=== PATIENT | female | born 1965 | race African-American/Black ===

== ENCOUNTER 2016-11-26 19:50 | Observation (INO) | payer MEDICAID ==
--- NOTE | 2016-11-26 20:12 | CPEKG ---
Heart Rate: 69 RR Interval: 870 P-R Interval: 136 QRSD Interval: 96 QT Interval: 408 QTC Interval: 437 P [place]: 25 QRS [place]: 31 T Wave [place]: 51 EKG Severity - NORMAL ECG - EKG Impression: SINUS RHYTHM Electronically Signed By: Avinash Cheung 26-Nov-2016 20:16:23
[2016-11-26 20:22] LABS: % IMMATURE GRANULYOCYTES 0.2 % (0.0-1.1); ABSOLUTE IMMATURE GRANULOCYTES 0.01 10^3/uL (0.00-0.10); ADD DIFF? NO; ADD MORPH? NO; ADD SCAN? NO; ATYPICAL LYMPHOCYTE FLAG 20 (0-99); FRAGMENT RBC FLAG 0 (0-99); HEMATOCRIT 38.4 % (38.0-47.0); HEMOGLOBIN 12.6 g/dL (12.6-16.3); LEFT SHIFT FLG 0 (0-99); LIPEMIA HEMOLYSIS FLAG 80 (0-99); MEAN CELL HEMOGLOBIN 28.1 pg (27.9-34.1); MEAN CELL HEMOGLOBIN CONCENTR. 32.8 g/dL (32.4-36.7); MEAN CELL VOLUME 85.5 fL (81.5-99.8); MEAN PLATELET VOLUME 8.8 fL (8.7-11.7); PLATELET CLUMPS FLAG 10 (0-99); PLATELET COUNT 297 10^3/uL (150-400); RED BLOOD CELL COUNT 4.49 10^6/uL (4.18-5.33); RED CELL DISTRIBUTION WIDTH 17.1 % (11.5-15.2)
[2016-11-26] MEDS ORDERED: NS 500 ML IV ONE (20:22)
--- NOTE | 2016-11-26 20:27 | EDPHY ---
H & P Stated Complaint: chest pain, diff breathing, right eye pain/pressure - Personal History LMP (Females 10-55): Post Menopausal Current Tetanus Diphtheria and Acellular Pertussis (TDAP): Yes Tetanus Vaccine Date: < 10 years - Medical/Surgical History Hx Asthma: No Hx Chronic Respiratory Disease: Yes Hx Diabetes: Yes Hx Cardiac Disease: No Hx Renal Disease: Yes Hx Cirrhosis: No Hx Alcoholism: No Hx HIV/AIDS: No Hx Splenectomy or Spleen Trauma: No Other PMH: HTN, kidney stones, NIDDM, home O2 @ 2L n/c after left fibular surgery, hysterectomy, right breast biopsy, ABD MASS, gallbladder, pulmonary hypertension - Social History Smoking Status: Never smoked HPI/ROS: CHIEF COMPLAINT: Chest pain HISTORY OF PRESENT ILLNESS: less than 12 hours duration of chest pain. Started this morning. It is primarily right-sided radiates on the left. It is worse with exertion. There is some cough and shortness of breath. There may not be associated with upper respiratory infection symptoms that she is having. The pain is [id number]. There is no alleviating factor. No nausea or vomiting. No diaphoresis. History of coronary artery disease but no stent placement. She is uncertain when her last stress test was but she thinks it was approximately 5 years ago. No recent travel or surgery. She does have a history of venous thrombolic event several years ago, for which she is now on Coumadin. Due for an INR check this week. No fever. Some runny nose and sinus congestion. No other associated complaints or modifying factors. REVIEW OF SYSTEMS: Ten systems reviewed and are negative unless otherwise noted in the HPI EXAMINATION General Appearance: Alert, no distress Head: normocephalic, atraumatic Eyes: Pupils equal and round, no conjunctival pallor or injection ENT, Mouth: Mucous membranes moist Neck: Normal inspection, supple, non-tender Respiratory: Mild, scattered rhonchi. No consolidation. No tympany. Cardiovascular: Regular rate and rhythm Gastrointestinal: Abdomen is soft and nontender Back: non-tender, no bony abnormalities Neurological: A&O, nonfocal, normal gait Skin: Warm and dry, no rash Extremities: Nontender, no pedal edema Psychiatric: Mood and affect normal Differential Diagnoses: 1. Acute coronary syndrome 2. pulmonary embolism 3. Stable angina 4. Pneumonia 5. Pulmonary hypertension MDM: patient is hemodynamically stable in no acute distress. Given her significant comorbidities, I have ordered a cardiac workup as well as CT angiogram to rule out PE. There is no hypoxia. Pain is [id number]. EKG Rate is 69 beats per minute, normal sinus rhythm. Normal intervals. There are inverted T-waves in AVR, V1. No ST elevations. There is mild ST depression in V4 without inverted T-wave. Re-Evaluation 21:40 Acute chest pain with negative troponin, baseline EKG and unchanged chest x- ray. She remains hemodynamically stable. Given her multiple comorbidities we will observe her for serial troponins. I have discussed the case with the hospitalist Dr. Ritchie, she will admit the patient observation. (Tremayne Butler) Constitutional: Initial Vital Signs Temperature (C) 37 C 11/26/16 19:57 Heart Rate 77 11/26/16 19:57 Respiratory Rate 20 11/26/16 19:57 Blood Pressure 162/85 H 11/26/16 19:57 O2 Sat (%) 95 11/26/16 19:57 O2 Delivery Mode Room Air O2 (L/minute) 3 Allergies/Adverse Reactions: oxycodone Allergy (Severe, Unverified 11/26/16 22:13) Other-Enter Comments iodine Allergy (Unknown, Verified 11/26/16 19:56) aspirin Allergy (Verified 11/26/16 19:56) codeine Allergy (Verified 11/26/16 19:56) grape Allergy (Verified 11/26/16 19:56) Anaphylaxis Penicillins Allergy (Verified 11/26/16 19:56) Rash shellfish derived Allergy (Verified 11/26/16 19:56) Home Medications: Medication Instructions Recorded Albuterol [Ventolin Hfa Inhaler] 1 - 2 puffs IH Q4 PRN 05/07/16 Amitriptyline HCl [Elavil 50 mg 50 mg PO HS 05/07/16 (*)] Gabapentin [Neurontin 300 MG (*)] 300 mg PO DAILY 05/07/16 Linagliptin [Tradjenta] 5 mg PO HS 05/07/16 Omeprazole 40 mg PO BID 05/07/16 Sertraline HCl [Zoloft 50mg (*)] 100 mg PO DAILY 05/07/16 Botox Injection 1 dose SQ Q90D 11/26/16 Gabapentin [Neurontin 300 MG (*)] 600 mg PO HS 11/26/16 Rifaximin [Xifaxan] 550 mg PO BID 11/26/16 Warfarin Sodium [Coumadin 5MG (*)] 5 mg PO MOSA 11/26/16 Warfarin Sodium [Coumadin 7.5MG 7.5 mg PO SUTUWETHFR 11/26/16 (*)] Nystatin Powder [Mycostatin Powder] 1 clarence TP TID 14 Days 11/27/16 - Data Points Laboratory Results: Laboratory Results 11/26/16 20:10 11/26/16 20:10 Medications Given: Discontinued Medications Amitriptyline HCl (Elavil) 50 mg PO HS [facility] Stop: 05/26/17 00:29 Last Admin: 11/27/16 00:43 Dose: 50 mg Gabapentin (Neurontin) 600 mg PO HS [facility] Stop: 05/26/17 00:29 Last Admin: 11/27/16 00:44 Dose: 600 mg Gabapentin (Neurontin) 300 mg PO DAILY [facility] Stop: 05/26/17 08:59 Last Admin: 11/27/16 10:18 Dose: 300 mg Sodium Chloride (Ns) 500 mls @ 0 mls/hr IV ONCE ONE PRN Reason: As Directed Stop: 11/26/16 20:23 Last Admin: 11/26/16 21:29 Dose: 500 mls Insulin Human Lispro (Humalog Lispro) 0 unit SC TIDMEAL [facility] PRN Reason: Protocol Stop: 05/26/17 07:59 Last Admin: 11/27/16 13:58 Dose: Not Given Morphine Sulfate (Morphine) 4 mg IVP EDNOW ONE Stop: 11/26/16 21:46 Last Admin: 11/26/16 21:51 Dose: 4 mg Morphine Sulfate (Morphine) 2 - 4 mg IVP Q3HRS PRN PRN Reason: Pain, Breakthrough Stop: 12/07/16 00:04 Last Admin: 11/27/16 05:41 Dose: 2 mg Nystatin (Mycostatin Powder) 1 clarence TP TID [facility] Stop: 12/27/16 00:14 Last Admin: 11/27/16 10:18 Dose: 1 clarence Ondansetron HCl (Zofran) 4 mg IVP EDNOW ONE Stop: 11/26/16 21:46 Last Admin: 11/26/16 21:51 Dose: 4 mg Pantoprazole Sodium (Protonix) 40 mg PO BID [facility] Stop: 05/26/17 08:59 Last Admin: 11/27/16 10:18 Dose: 40 mg Rifaximin (Xifaxan) 550 mg PO BID [facility] PRN Reason: Protocol Stop: 12/10/16 21:01 Last Admin: 11/27/16 10:18 Dose: 550 mg Sertraline HCl (Zoloft) 100 mg PO DAILY [facility] Stop: 05/26/17 08:59 Last Admin: 11/27/16 10:18 Dose: 100 mg Departure - Departure Disposition: [facility] Acute Clinical Impression: Acute chest pain, Pulmonary hypertension, Diabetes
[2016-11-26 20:38] LABS: ANION GAP 11 mEq/L (8-16); CALCIUM 8.7 mg/dL (8.5-10.4); CARBON DIOXIDE 31 mEq/l (22-31); CHLORIDE 101 mEq/L (97-110); CREATININE 0.9 mg/dL (0.6-1.0); GLOMERULAR FILTRATION RATE > 60; GLUCOSE 92 mg/dL (70-100); POTASSIUM 3.7 mEq/L (3.5-5.2); SODIUM 143 mEq/L (134-144)
[2016-11-26 20:51] LABS: TROPONIN I < 0.012 ng/mL (0-0.034)
[2016-11-26 20:55] LABS: INR 2.63 (0.83-1.16); PROTIME(PATIENT) 28.4 SEC (12.0-15.0)
[2016-11-26 20:56] LABS: APTT 50.3 SEC (23.0-38.0)
[2016-11-26] MEDS ORDERED: ONDANSETRON 4 MG/2 ML VIAL IVP ONE (21:45)
--- NOTE | 2016-11-26 22:11 | DX ---
Portable Chest, Single View - November 26, 2016 Indication: Chest pain. Comparison: Two-view chest dated May 07, 2016. Findings: The lungs are clear with mild diffuse peribronchial thickening. Mild dextrocurvature of the thoracic spine is unchanged. No pneumothorax, airspace consolidation or effusion. Heart size is with in normal limit for portable technique. Impression: Mild airways disease. Otherwise no acute process.
[2016-11-26 22:50] VITALS: RESP 18
[2016-11-27] MEDS ORDERED: NITROGLYCERIN 0.4 MG BTL SL PRN (00:05)
[2016-11-27] MEDS ORDERED: ALBUTEROL 60 PUFFS/8 GM MDI IH PRN (00:13)
[2016-11-27] MEDS ORDERED: D50W 25 GM/50 ML SYR IVP PRN (00:16)
[2016-11-27] MEDS ORDERED: GABAPENTIN 300 MG CAP PO SCH ×2 (00:30→09:00)
[2016-11-27] MEDS ORDERED: AMITRIPTYLINE HCL 25 MG TAB PO SCH (00:30)
[2016-11-27] MEDS: NYSTATIN POWDER 15 GM BTL TP SCH ×2 (00:45→10:18)
--- NOTE | 2016-11-27 04:00 | PDGENHP ---
History and Physical - Chief Complaint chest pain - History of Present Illness Patient is a 51-year-old female with a history morbid obesity, hypertension, diabetes, antiphospholipid antibody with history of DVT (on lifelong anticoagulation), small bowel bacterial overgrowth and anxiety/depression who to the ED with complaint of chest pain. Patient states her symptoms started the night prior to presentation with substernal and right-sided burning sensation. She had difficulty sleeping throughout the night due to the symptoms. On day of presentation patient states she continued to have this burning type of sensation in her mid chest which then began to radiate to the left side. She denies any associated lightheadedness, diaphoresis, nausea or palpitations. She does report headache and congestion type symptoms for the past 5 days fevers , chills or cough. On arrival to the ED patient was afebrile and hemodynamically stable. ED workup revealed negative troponin, normal CBC and BMP, chest x-ray unremarkable , EKG without evidence of ischemia. Patient was given pain control and admitted to the hospitalist service for further management. History Information - Allergies/Home Medication List Allergies/Adverse Reactions: oxycodone Allergy (Severe, Unverified 11/26/16 22:13) Other-Enter Comments iodine Allergy (Unknown, Verified 11/26/16 19:56) aspirin Allergy (Verified 11/26/16 19:56) codeine Allergy (Verified 11/26/16 19:56) grape Allergy (Verified 11/26/16 19:56) Anaphylaxis Penicillins Allergy (Verified 11/26/16 19:56) Rash shellfish derived Allergy (Verified 11/26/16 19:56) Home Medications: Albuterol [Ventolin Hfa Inhaler] 1 - 2 puffs IH Q4 PRN 05/07/16 [Last Taken Unknown] Amitriptyline HCl [Elavil 50 mg (*)] 50 mg PO HS 05/07/16 [Last Taken 11/25/16] Gabapentin [Neurontin 300 MG (*)] 300 mg PO DAILY 05/07/16 [Last Taken 11/26/16] Linagliptin [Tradjenta] 5 mg PO HS 05/07/16 [Last Taken 11/25/16] Omeprazole 40 mg PO BID 05/07/16 [Last Taken 11/26/16] Sertraline HCl [Zoloft 50mg (*)] 100 mg PO DAILY 05/07/16 [Last Taken 11/26/16] Botox Injection 1 dose SQ Q90D 11/26/16 [Last Taken 11/06/16] Gabapentin [Neurontin 300 MG (*)] 600 mg PO HS 11/26/16 [Last Taken 11/25/16] Rifaximin [Xifaxan] 550 mg PO BID 11/26/16 [Last Taken 11/26/16 08:00] Warfarin Sodium [Coumadin 5MG (*)] 5 mg PO MOSA 11/26/16 [Last Taken 11/25/16] Warfarin Sodium [Coumadin 7.5MG (*)] 7.5 mg PO SUTUWETHFR 11/26/16 [Last Taken Unknown] I have personally reviewed and updated: family history, medical history, social history, surgical history - Past Medical History Additional medical history: Dm 2. Small bowel bacterial overgrowth syndrome. Depression/anxiety. Reported history of antiphospholipid antibody syndrome, with distant history of lower extremity DVT, currently on lifelong systemic anticoagulation - Surgical History Additional surgical history: Left lower extremity fracture repair. Cholecystectomy. Hysterectomy. bilateral oophorectomy. Hernia repair. C- section - Family History Additional family history: Father brother: CAD - Social History Smoking Status: Never smoked Alcohol Use: None Drug Use: None Additional social history: Patient lives with daughters, is independent in ADLs. Review of Systems ROS: 10pt was reviewed & negative except for what was stated in HPI & below Physical Exam Temp Pulse Resp BP Pulse Ox 36.8 C 73 18 144/82 H 90 L 11/26/16 22:43 11/26/16 22:43 11/26/16 22:43 11/26/16 22:43 11/26/16 22:43 O2 (L/minute) 2 Constitutional: no apparent distress, not in pain, obese Eyes: PERRL, anicteric sclera, EOMI Ears, Nose, Mouth, Throat: moist mucous membranes, hearing normal, ears appear normal, no oral mucosal ulcers Cardiovascular: regular rate and rhythym, no murmur, rub, or gallop, pulses symmetric bilaterally, No JVD, No edema Peripheral Pulses: 2+: dorsalis-pedis (R), dorsalis-pedis (L) Respiratory: no respiratory distress, no rales or rhonchi, clear to auscultation Gastrointestinal: normoactive bowel sounds, soft, non-tender abdomen, no palpable masses, No guarding, No rebound Genitourinary: no bladder fullness, no bladder tenderness Skin: warm, normal color, no fluctuance, rash (Hyperpigmentation under right breast fold, no obvious vesicles, no evidence of skin breakdown), No mottled Musculoskeletal: full muscle strength, no muscle tenderness, normal joint ROM, no joint effusions Neurologic: AAOx3, sensation intact bilaterally, CN II-XII Intact, No weakness, No numbness Psychiatric: interacting appropriately, not anxious, not encephalopathic, thought process linear Lab Data & Imaging Review 11/26/16 20:10 11/26/16 20:10 WBC 4.91 10^3/uL (3.80-9.50) 11/26/16 20:10 RBC 4.49 10^6/uL (4.18-5.33) 11/26/16 20:10 Hgb 12.6 g/dL (12.6-16.3) 11/26/16 20:10 Hct 38.4 % (38.0-47.0) 11/26/16 20:10 MCV 85.5 fL (81.5-99.8) 11/26/16 20:10 MCH 28.1 pg (27.9-34.1) 11/26/16 20:10 MCHC 32.8 g/dL (32.4-36.7) 11/26/16 20:10 RDW 17.1 % (11.5-15.2) H 11/26/16 20:10 Plt Count 297 10^3/uL (150-400) 11/26/16 20:10 MPV 8.8 fL (8.7-11.7) 11/26/16 20:10 Neut % (Auto) 57.5 % (39.3-74.2) 11/26/16 20:10 Lymph % (Auto) 32.0 % (15.0-45.0) 11/26/16 20:10 [place] % (Auto) 8.1 % (4.5-13.0) 11/26/16 20:10 Eos % (Auto) 1.8 % (0.6-7.6) 11/26/16 20:10 Baso % (Auto) 0.4 % (0.3-1.7) 11/26/16 20:10 Nucleat RBC Rel Count 0.0 % (0.0-0.2) 11/26/16 20:10 Absolute Neuts (auto) 2.82 10^3/uL (1.70-6.50) 11/26/16 20:10 Absolute Lymphs (auto) 1.57 10^3/uL (1.00-3.00) 11/26/16 20:10 Absolute Monos (auto) 0.40 10^3/uL (0.30-0.80) 11/26/16 20:10 Absolute Eos (auto) 0.09 10^3/uL (0.03-0.40) 11/26/16 20:10 Absolute Basos (auto) 0.02 10^3/uL (0.02-0.10) 11/26/16 20:10 Absolute Nucleated RBC 0.00 10^3/uL (0-0.01) 11/26/16 20:10 Immature Gran % 0.2 % (0.0-1.1) 11/26/16 20:10 Immature Gran # 0.01 10^3/uL (0.00-0.10) 11/26/16 20:10 PT 28.4 SEC (12.0-15.0) H 11/26/16 20:29 INR 2.63 (0.83-1.16) H 11/26/16 20:29 APTT 50.3 SEC (23.0-38.0) H 11/26/16 20:29 D-Dimer < 0.27 ug/mLFEU (0.00-0.50) 11/26/16 20:29 Sodium 143 mEq/L (134-144) 11/26/16 20:10 Potassium 3.7 mEq/L (3.5-5.2) 11/26/16 20:10 Chloride 101 mEq/L (97-110) 11/26/16 20:10 Carbon Dioxide 31 mEq/l (22-31) 11/26/16 20:10 Anion Gap 11 mEq/L (8-16) 11/26/16 20:10 BUN 13 mg/dL (7-23) 11/26/16 20:10 Creatinine 0.9 mg/dL (0.6-1.0) 11/26/16 20:10 Estimated GFR > 60 11/26/16 20:10 Glucose 92 mg/dL (70-100) 11/26/16 20:10 Calcium 8.7 mg/dL (8.5-10.4) 11/26/16 20:10 Troponin I < 0.012 ng/mL (0-0.034) 11/27/16 00:30 Influenza Typ A,B (DFA) NEGATIVE FOR FLU (NEGATIVE) 11/27/16 00:30 Visualized and Interpreted Chest x-ray results: Yes Chest X-Ray results: no infiltrate, normal Visualized and Interpreted EKG results: Yes EKG Interpretation: Positive for: normal sinsus rhythm (Normal intervals, no ST T wave changes) Assessment & Plan Assessment: Patient is a 51-year-old female with a history of morbid obesity, diabetes, hypercoagulable state with history of DVT and anxiety/depression who presents to the ED with complaint of substernal chest pain. Plan: # chest pain Patient reports for substernal and mostly right-sided chest pain. Patient has rash the location of chest pain, could be the cause of her symptoms, but given patient's risk factors will also rule out cardiac etiology. -troponin, serial EKG -nuclear stress in a.m. -symptom control p.r.n. # rash Patient has moist, erythematous/dark discoloration rash under right breast fold , which patient describes has caused a burning sensation. Likely a fungal infection no obvious vesicles to indicate varicella zoster at this time. Will treat with topical nystatin and reassess symptoms. # h/o DVT, antiphospholipid syndrome INR is therapeutic on presentation, patient has no evidence of DVT in D-dimer is negative. Will continue warfarin per home dosing regimen. # anxiety/depression Stable per patient, denies any SI/HI. Continue home med regimen # dm 2, complicated by peripheral neuropathy Patient reports has been well controlled recently, is normoglycemic on presentation. Will monitor fingersticks three times daily a.c. and cover with insulin sliding scale while inpatient. Cont peripheral neuropathy treatment also. # dispo: observe in [facility] overnight # gen: NPO p MN Full code
[2016-11-27 05:50] LABS: CHOLESTEROL 145 mg/dL (140-220); CHOLESTEROL/HDL RATIO 3.15 RATIO (1.00-4.44); HIGH DENSITY LIPOPROTEIN 46 mg/dL (40-85); LDL/HDL RATIO 1.85 RATIO (1.00-3.22); LOW DENSITY LIPOPROTEIN 85 mg/dL (80-100); NON-HIGH DENSITY LIPOPROTEIN 99 mg/dL (90-129); TRIGLYCERIDE 70 mg/dL (35-135); VERY LOW DENSITY LIPOPROTEINS 14 mg/dL (8-25)
[2016-11-27 06:01] LABS: TROPONIN I < 0.012 ng/mL (0-0.034)
[2016-11-27] MEDS ORDERED: SERTRALINE HCL 100 MG TAB PO SCH (09:00)
[2016-11-27] MEDS ORDERED: PANTOPRAZOLE SODIUM 40 MG TAB PO SCH (09:00)
[2016-11-27] MEDS ORDERED: RIFAXIMIN 550 MG TAB PO SCH (09:00)
[2016-11-27] MEDS: INSULIN LISPRO 100 UNIT/ML SC SCH ×2 (09:40→13:58)
[2016-11-27] MEDS ORDERED: REGADENOSON 0.4 MG/5 ML SYR IVP ONE (11:12)
[2016-11-27 12:03] VITALS: BP 129/83; PULSE 56; TEMP 97.5; O2SAT 99
--- NOTE | 2016-11-27 12:05 | CPR ---
[f rep st] NONINVASIVE CARDIAC PROCEDURE REPORT DATE OF PROCEDURE: 11/27/2016 PROCEDURE: Nuclear Lexiscan stress test. REASON FOR TEST: Chest pain. Resting EKG shows a sinus bradycardia with a rate of 54, no ischemic changes. No arrhythmias noted. Blood pressure 126/77, oxygen saturation 99% on 2 L of oxygen. Rare PAC noted on telemetry. She is asymptomatic. Stress portion: Lexiscan was injected rapidly followed by saline flush. The Cardiolite was then inj ected followed by saline flush per protocol. Peak heart rate 78, peak blood pressure 125/74, oxygen saturation 98%. After injection, she did feel some left leg tightness. No EKG changes. Recovery: During recovery, she additionally felt right lower back discomfort. PVC noted. Recovery blood pressure 123/74, recovery heart rate 72, oxygen saturation 98%. The discomfort spontaneously s ubsided with caffeine. At this time, she currently is stable for nuclear imaging. /[id number]/MODL
--- NOTE | 2016-11-27 12:53 | NM ---
Nuclear Medicine Myocardial Perfusion Scan Clinical History: 51-year-old female with chest pain, hypertension, and diabetes. Rule out myocardial ischemia. The patient has had 2 negative serum troponin levels, and a normal D-dimer. Radiopharmaceutical: 10.7 mCi of IV technetium 99m sestamibi (rest portion), and 25.6 mCi of IV tech netium 99m sestamibi (stress portion). Medical Pharmaceutical: 0.4 mg of IV Lexiscan. Technique: After the respective rest and stress sequences, images were acquired tomographically and reconstructed along the standard cardiac axes. The study was gated and reviewed on the computer works tation using [email or web address] [facility] software. Comparison Study: None. Findings: In the distal portion of the left ventricle, there is a tiny reversible inferolateral junct ion defect, suggestive of a tiny component of ischemic change. There is some relatively fixed thinnin g of the left ventricular apex and also of the anteroseptal junction near the base of the left ventri giancarlo. Contractility appears within the lower range of normal, with a computer-generated LVEF of 53%. Impression: A tiny focus of distal inferolateral junction ischemia is suspected. Results were texted to Dr. Renard Christensen. A test result has been communicated to a licensed care provider and documented in [employer], 12:49:06 P M, 11/27/2016, [employer] Message ID [id number].
--- NOTE | 2016-11-27 14:35 | PDDCSUM ---
Discharge Summary Discharge Summary: Dates of service 11/26- Hospital course by problem # chest pain: atypical by description but in patient w/RFs including DM, HTN. Stress test showing small area of reversible ischemia. Cardiology consulted and given 2 days of pain without rise in trop and w/equivocal stress test, plan will be for dc home with f/u with cardiology in 7-10 days to determine if angiography should be performed at that time. # rash: appears c/w candidiasis, will dc home on nystatin # h/o dvt/aplab syndrome: continue warfarin # dm2: continue op medications # anxiety/mdd: continue op meds, stable # dispo: dc home, f/u with Dr. Alvarado in 7-10 days Care plan reviewed with patient and Dr. Jackson > 35 min spent in care of patient, more than half in face to face consultation regarding care plan
--- NOTE | 2016-11-27 14:39 | PDCARCONS ---
Cardiology Consult Reason for Consult: Abnormal nuclear study in the setting of chest pain Chief Complaint: chest pain Requesting Physician: Dr. Rosario History of Present Illness: I am asked today to visit with Shantell Corcoran a 51-year-old female with history of hypertension, type 2 diabetes, and anti phosphid antibody associated with pulmonary hypertension admitted to the hospital with chest pain. Patient was in her usual state of good health until beginning of the week which she developed fever chills and a pleuritic left-sided chest pain. The pain persisted for over 36 hours. It was worse when she took a deep breath. It radiated to the back. It was not associated with nausea vomiting or diaphoresis. There was not a productive cough. She came to the emergency department where she has been observed for 24 hours. Troponins have been negative x3. EKG does not show any changes. She had a nuclear stress test done which shows a very small inferoapical defect of questionable significance. Her overall LV function is normal. On my arrival she has continued to have pleuritic pain. Her shoulder pain appears to be somewhat musculoskeletal feeling better when she struck his it. Patient has no history of angina, heart failure, atrial arrhythmia. She has a longstanding history of a heart murmur. Cardiac risk include diabetes managed with lifestyle, hypertension, family history of early heart disease her father having a fatal event in his mid 50s. Her brother also has had significant atherosclerotic disease with amputation and . History Information - Allergies/Home Medication List Allergies/Adverse Reactions: oxycodone Allergy (Severe, Unverified 11/26/16 22:13) Other-Enter Comments iodine Allergy (Unknown, Verified 11/26/16 19:56) aspirin Allergy (Verified 11/26/16 19:56) codeine Allergy (Verified 11/26/16 19:56) grape Allergy (Verified 11/26/16 19:56) Anaphylaxis Penicillins Allergy (Verified 11/26/16 19:56) Rash shellfish derived Allergy (Verified 11/26/16 19:56) Home Medications: Albuterol [Ventolin Hfa Inhaler] 1 - 2 puffs IH Q4 PRN 05/07/16 [Last Taken Unknown] Amitriptyline HCl [Elavil 50 mg (*)] 50 mg PO HS 05/07/16 [Last Taken 11/25/16] Gabapentin [Neurontin 300 MG (*)] 300 mg PO DAILY 05/07/16 [Last Taken 11/26/16] Linagliptin [Tradjenta] 5 mg PO HS 05/07/16 [Last Taken 11/25/16] Omeprazole 40 mg PO BID 05/07/16 [Last Taken 11/26/16] Sertraline HCl [Zoloft 50mg (*)] 100 mg PO DAILY 05/07/16 [Last Taken 11/26/16] Botox Injection 1 dose SQ Q90D 11/26/16 [Last Taken 11/06/16] Gabapentin [Neurontin 300 MG (*)] 600 mg PO HS 11/26/16 [Last Taken 11/25/16] Rifaximin [Xifaxan] 550 mg PO BID 11/26/16 [Last Taken 11/26/16 08:00] Warfarin Sodium [Coumadin 5MG (*)] 5 mg PO MOSA 11/26/16 [Last Taken 11/25/16] Warfarin Sodium [Coumadin 7.5MG (*)] 7.5 mg PO SUTUWETHFR 11/26/16 [Last Taken Unknown] I have personally reviewed and updated: family history, medical history, social history, surgical history - Past Medical History Additional medical history: History of DVT at the time of a leg fracture. Antiphospholipid antibody syndrome. Pulmonary hypertension. Status post T and A. Hysterectomy, oophorectomy, cholecystectomy. - Surgical History Reports: cholecystectomy - Family History Positive for: father with history of CAD younger than 55 - Social History Smoking Status: Never smoked Alcohol Use: None Drug Use: None Cardiac History - Cardiac History Cardiac Risk Factors: hypertension (>140/90), diabetes mellitus, family history of premature CAD Timing/Duration: Days, Changing over time Severity: moderate Severity Scale: 7 Location: substernal Activities at Onset: rest Modifying Factors: improves with: breathing, movement AURORA Risk Evaluation age greater or equal to 65: no greater or equal to 3 CAD risk factors: yes known CAD(stenosis greater or eqaul to 50%): no ASA use in past 7 days: no severe angina(greater or equal to 2 episodes in 24hrs): no EKG ST changes greater or equal to 0.5mm: no positive cardiac marker: no Total Score: 1 AURORA Score: 4.7% risk Physical Exam Temp Pulse Resp BP Pulse Ox 36.4 C 56 L 18 129/83 H 99 11/27/16 12:02 11/27/16 12:02 11/27/16 12:02 11/27/16 12:02 11/27/16 12:02 O2 (L/minute) 3 Constitutional: no apparent distress Eyes: PERRL, anicteric sclera Ears, Nose, Mouth, Throat: moist mucous membranes Cardiovascular: regular rate and rhythym, no murmur, rub, or gallop Respiratory: no respiratory distress, no rales or rhonchi, clear to auscultation Gastrointestinal: normoactive bowel sounds, soft, non-tender abdomen Skin: warm Musculoskeletal: full muscle strength Neurologic: AAOx3 Lymph, Heme, Immunologic: no cervical LAD, no supraclavicular LAD Lab and Imaging 11/26/16 20:10 11/26/16 20:10 WBC 4.91 10^3/uL (3.80-9.50) 11/26/16 20:10 RBC 4.49 10^6/uL (4.18-5.33) 11/26/16 20:10 Hgb 12.6 g/dL (12.6-16.3) 11/26/16 20:10 Hct 38.4 % (38.0-47.0) 11/26/16 20:10 MCV 85.5 fL (81.5-99.8) 11/26/16 20:10 MCH 28.1 pg (27.9-34.1) 11/26/16 20:10 MCHC 32.8 g/dL (32.4-36.7) 11/26/16 20:10 RDW 17.1 % (11.5-15.2) H 11/26/16 20:10 Plt Count 297 10^3/uL (150-400) 11/26/16 20:10 MPV 8.8 fL (8.7-11.7) 11/26/16 20:10 Neut % (Auto) 57.5 % (39.3-74.2) 11/26/16 20:10 Lymph % (Auto) 32.0 % (15.0-45.0) 11/26/16 20:10 [place] % (Auto) 8.1 % (4.5-13.0) 11/26/16 20:10 Eos % (Auto) 1.8 % (0.6-7.6) 11/26/16 20:10 Baso % (Auto) 0.4 % (0.3-1.7) 11/26/16 20:10 Nucleat RBC Rel Count 0.0 % (0.0-0.2) 11/26/16 20:10 Absolute Neuts (auto) 2.82 10^3/uL (1.70-6.50) 11/26/16 20:10 Absolute Lymphs (auto) 1.57 10^3/uL (1.00-3.00) 11/26/16 20:10 Absolute Monos (auto) 0.40 10^3/uL (0.30-0.80) 11/26/16 20:10 Absolute Eos (auto) 0.09 10^3/uL (0.03-0.40) 11/26/16 20:10 Absolute Basos (auto) 0.02 10^3/uL (0.02-0.10) 11/26/16 20:10 Absolute Nucleated RBC 0.00 10^3/uL (0-0.01) 11/26/16 20:10 Immature Gran % 0.2 % (0.0-1.1) 11/26/16 20:10 Immature Gran # 0.01 10^3/uL (0.00-0.10) 11/26/16 20:10 PT 28.4 SEC (12.0-15.0) H 11/26/16 20:29 INR 2.63 (0.83-1.16) H 11/26/16 20:29 APTT 50.3 SEC (23.0-38.0) H 11/26/16 20:29 D-Dimer < 0.27 ug/mLFEU (0.00-0.50) 11/26/16 20:29 Sodium 143 mEq/L (134-144) 11/26/16 20:10 Potassium 3.7 mEq/L (3.5-5.2) 11/26/16 20:10 Chloride 101 mEq/L (97-110) 11/26/16 20:10 Carbon Dioxide 31 mEq/l (22-31) 11/26/16 20:10 Anion Gap 11 mEq/L (8-16) 11/26/16 20:10 BUN 13 mg/dL (7-23) 11/26/16 20:10 Creatinine 0.9 mg/dL (0.6-1.0) 11/26/16 20:10 Estimated GFR > 60 11/26/16 20:10 Glucose 92 mg/dL (70-100) 11/26/16 20:10 POC Glucose 89 mg/dL (70-100) 11/27/16 11:58 Calcium 8.7 mg/dL (8.5-10.4) 11/26/16 20:10 Troponin I < 0.012 ng/mL (0-0.034) 11/27/16 05:01 Triglycerides 70 mg/dL (35-135) 11/27/16 05:01 Cholesterol 145 mg/dL (140-220) 11/27/16 05:01 Cholesterol Risk Factr 0.5 (0.2-1.0) 11/27/16 05:01 LDL Cholesterol, Calc 85 mg/dL (80-100) 11/27/16 05:01 LDL Risk Factor 0.6 (0.2-1.0) 11/27/16 05:01 VLDL Cholesterol 14 mg/dL (8-25) 11/27/16 05:01 Non-HDL Cholesterol 99 mg/dL (90-129) 11/27/16 05:01 HDL Cholesterol 46 mg/dL (40-85) 11/27/16 05:01 LDL/HDL Ratio 1.85 RATIO (1.00-3.22) 11/27/16 05:01 Cholesterol/HDL Ratio 3.15 RATIO (1.00-4.44) 11/27/16 05:01 TSH 1.850 uIU/mL (0.465-4.680) 11/27/16 05:01 Influenza Typ A,B (DFA) NEGATIVE FOR FLU (NEGATIVE) 11/27/16 00:30 Visualized and Interpreted EKG results: Yes EKG Interpretation: Positive for: normal sinsus rhythm A/P Assessment: Impression: Greater than 24 hours of atypical chest pain most consistent with pleurisy post viral infection with fever chills and cold-like symptoms. No evidence of acute coronary syndrome based on normal EKG, stable cardiac enzymes despite duration of pain. Abnormal nuclear stress test suggesting mild defect. Possibly this relates to patient's morbid obesity and artifact. Cannot exclude coronary artery disease with significant risk. She is young. Recommend continued medical therapy with anticoagulation for her antiphospholipid syndrome. Continue secondary prevention. Clinical follow-up. Considerations for angiography when her viral illness has resolved. Will be happy to follow her as an outpatient. Plan: Discharge from the hospital. Outpatient follow-up. Review of Systems - Review of Systems Constitutional: chills, fever, malaise Respiratory: hurts to breath Cardiac: no symptoms reported. denies: irregular heart rate, lightheadedness, palpitations, syncope Gastrointestinal/Abdominal: no symptoms reported Genitourinary: no symptoms Musculoskelatal: back pain Skin: no symptoms Neurological: no symptoms
[2016-11-27] MEDS ORDERED: WARFARIN SODIUM 7.5 MG TAB PO SCH (16:00)
[2016-11-30] MEDS ORDERED: WARFARIN SODIUM 5 MG TAB PO SCH (16:00)
== END 2016-11-27 16:30 | disposition home or self-care (01) ==
LOC: F1N 22:23
PROVIDERS: ADMIT Internal Medicine; ATTEND Internal Medicine
DX: R07.9 Chest pain, unspecified (principal); R21 Rash and other nonspecific skin eruption; E11.40 Type 2 diabetes mellitus with diabetic neuropathy, unspecified; I10 Essential (primary) hypertension; Z86.718 Personal history of other venous thrombosis and embolism; Z79.01 Long term (current) use of anticoagulants; I27.2 Other secondary pulmonary hypertension; D68.61 Antiphospholipid syndrome; F41.9 Anxiety disorder, unspecified; F32.9 Major depressive disorder, single episode, unspecified; E66.01 Morbid (severe) obesity due to excess calories; Z68.35 Body mass index [BMI] 35.0-35.9, adult; Z87.442 Personal history of urinary calculi; Z78.0 Asymptomatic menopausal state; Z82.49 Family history of ischemic heart disease and other diseases of the circulatory system; Z88.0 Allergy status to penicillin
CPT/HCPCS: 71010; 78452; 93005; 93017; 96361; 96374; 96375; 99285; A9500; G0378; J2405; J2785

== ENCOUNTER 2017-02-03 15:04 | Emergency (ER) | payer MEDICAID ==
[2017-02-03 15:11] VITALS: TEMP 97.9
[2017-02-03] MEDS ORDERED: HYDROCODONE/APAP 5/325 TAB PO ONE (16:07)
--- NOTE | 2017-02-03 16:11 | EDPHY ---
H & P Stated Complaint: left leg swelling, similar sensation to previuos DVT. Time Seen by Provider: 02/03/17 16:08 HPI/ROS: HPI: 51-year-old female presents to emergency department with chief concern 8/ 10 left calf pain that onset suddenly this morning. Denies fever, chills, myalgias, URI symptoms, shortness of breath, chest pain, abdominal pain, nausea , vomiting, diarrhea, trauma, recent long car or plane travel. Has a history of DVT. She is anticoagulated on Coumadin. Last INR check last month. Other significant past medical history includes hypertension, kidney stones, non- insulin-dependent diabetes, home O2 at 2 L, hysterectomy, right breast biopsy, abdominal mass, cholecystectomy, pulmonary hypertension. ROS:10 point review of systems is negative other than as stated in HPI Source: Patient Exam Limitations: No limitations - Personal History LMP (Females 10-55): Hysterectomy Current Tetanus Diphtheria and Acellular Pertussis (TDAP): Yes Tetanus Vaccine Date: < 10 years - Medical/Surgical History Hx Asthma: No Hx Chronic Respiratory Disease: Yes Hx Diabetes: Yes Hx Cardiac Disease: No Hx Renal Disease: Yes Hx Cirrhosis: No Hx Alcoholism: No Hx HIV/AIDS: No Hx Splenectomy or Spleen Trauma: No Other PMH: HTN, kidney stones, NIDDM, home O2 @ 2L n/c after left fibular surgery, hysterectomy, right breast biopsy, ABD MASS, gallbladder, pulmonary hypertension - Family History Significant Family History: No pertinent family hx - Social History Smoking Status: Never smoked Alcohol Use: None Drug Use: None - Physical Exam Exam: Vital signs stable, reviewed by me General: Awake, alert, calm, cooperative. No acute distress. Head: Normalocephalic. Atraumatic. EENT: PERRLA. EOMI. No pallor or injection. Anicteric. No nystagmus. No injection. TMs intact bilaterally with normal landmarks. Neck: Supple, nontender. No lymphadenopathy. Full range of motion. No meningismus. Respiratory: Breathing unlabored. Breath sounds equal bilaterally and clear to auscultation. No adventitious sounds. CV: Chest nontender, atraumatic. Heart rate regular. No murmur, distal pulses 2+ bilaterally. Brisk cap refill all extremities. GI: Abdomen soft, nontender. Bowel sounds normoactive and positive x4 quadrants. Neuro: Alert. Oriented x 3. Speech clear. Nonfocal cranial nerves throughout. Sensation intact all extremities. Skin: Skin warm, dry, intact. No rashes, abrasions, or lacerations. Skin turgor normal. Extremities: Full range of motion in all 4 extremities. Left calf with positive tenderness, positive Homans. No appreciable swelling. Strength 5+ all extremities. Constitutional: Initial Vital Signs Temperature (C) 36.6 C 02/03/17 15:06 Heart Rate 93 02/03/17 15:06 Respiratory Rate 16 02/03/17 15:06 Blood Pressure 132/91 H 02/03/17 15:06 O2 Sat (%) 95 02/03/17 15:06 O2 Delivery Mode Nasal Cannula O2 (L/minute) 2 Allergies/Adverse Reactions: oxycodone Allergy (Severe, Unverified 11/26/16 22:13) Other-Enter Comments iodine Allergy (Unknown, Verified 11/26/16 19:56) aspirin Allergy (Verified 11/26/16 19:56) codeine Allergy (Verified 11/26/16 19:56) grape Allergy (Verified 11/26/16 19:56) Anaphylaxis Penicillins Allergy (Verified 11/26/16 19:56) Rash shellfish derived Allergy (Verified 11/26/16 19:56) Home Medications: Medication Instructions Recorded Albuterol [Ventolin Hfa Inhaler] 1 - 2 puffs IH Q4 PRN 05/07/16 Amitriptyline HCl [Elavil 50 mg 50 mg PO HS 05/07/16 (*)] Gabapentin [Neurontin 300 MG (*)] 300 mg PO DAILY 05/07/16 Linagliptin [Tradjenta] 5 mg PO HS 05/07/16 Omeprazole 40 mg PO BID 05/07/16 Sertraline HCl [Zoloft 50mg (*)] 100 mg PO DAILY 05/07/16 Botox Injection 1 dose SQ Q90D 11/26/16 Gabapentin [Neurontin 300 MG (*)] 600 mg PO HS 11/26/16 Rifaximin [Xifaxan] 550 mg PO BID 11/26/16 Warfarin Sodium [Coumadin 5MG (*)] 5 mg PO MOSA 11/26/16 Warfarin Sodium [Coumadin 7.5MG 7.5 mg PO SUTUWETHFR 11/26/16 (*)] Nystatin Powder [Mycostatin Powder] 1 clarence TP TID 14 Days 11/27/16 Hydrocodone/APAP 5/325 [[place] 1 - 2 tab PO Q6H PRN #8 tab 02/03/17 5/325 (*)] Medical Decision Making - Diagnostics Imaging: Ultrasound negative for evidence of deep vein thrombosis. Final report pending at time this dictation. ED Course/Re-evaluation: 51-year-old female presents to emergency department with left calf pain. She is anticoagulated on Coumadin. She has a history of lower extremity DVT. Ultrasound today is negative for DVT. INR subtherapeutic at 1.85. I have recommended that she take an additional dose of Coumadin this afternoon. Will have her follow up with primary care for further evaluation tomorrow. I am not concerned for infection is there is no swelling, or warmth. No shortness of breath or chest pain. Differential Diagnosis: Differential diagnosis includes but is not limited to and in no particular order DVT, musculoskeletal strain, infection - Data Points Laboratory Results: 02/03/17 15:30 PT 21.4 SEC H SEC (12.0-15.0) INR 1.85 H (0.83-1.16) Departure - Departure Disposition: Home, Routine, Self-Care Clinical Impression: Pain of left calf Condition: Good Instructions: Musculoskeletal Pain (ED) Additional Instructions: Plan: Ultrasound negative for evidence of deep vein thrombosis INR is subtherapeutic at 1.85. Please take an additional dose of coumadin today and see MD tomorrow as discussed WITH this paperwork May use 1-2 Wynona every 6 hours as needed for severe pain--Never drink or drive while taking this medication. This medication impairs decision making capacity so do not work or sign important documents while taking. This medication its constipating so drink plenty of fluids and consider an [id number] stool softener such as docusate sodium (Colace) while taking this medication. This medication has addictive properties. You should use the least amount for the shortest amount of time. [facility] do not refill narcotic pain medication prescriptions. This is a hospital policy. You will need to follow up as indicated for recheck for further narcotic refills. Follow up with primary care provider at [facility] tomorrow for recheck without fail--When you call to schedule appointment, please let the office know you are an "ER follow up" appointment" Referrals: Marcie Arcos, PAC [Primary Care Provider] - As per Instructions Prescriptions: Hydrocodone/APAP 5/325 [Wyn[place] 5/325 (*)] 1 - 2 tab PO Q6H PRN #8 tab PRN Reason: severe pain
[2017-02-03 16:20] LABS: INR 1.85 (0.83-1.16); PROTIME(PATIENT) 21.4 SEC (12.0-15.0)
[2017-02-03 16:45] VITALS: O2SAT 98
[2017-02-03 16:51] VITALS: BP 142/76; PULSE 78; RESP 18
== END 2017-02-03 16:51 | disposition home or self-care (01) ==
DX: M79.605 Pain in left leg (principal); I10 Essential (primary) hypertension; E11.9 Type 2 diabetes mellitus without complications; Z79.01 Long term (current) use of anticoagulants

== ENCOUNTER 2017-03-23 23:01 | Emergency (ER) | payer MEDICAID ==
[2017-03-24 00:56] LABS: % IMMATURE GRANULYOCYTES 0.2 % (0.0-1.1); ABSOLUTE IMMATURE GRANULOCYTES 0.01 10^3/uL (0.00-0.10); ADD DIFF? NO; ADD MORPH? NO; ADD SCAN? NO; ATYPICAL LYMPHOCYTE FLAG 0 (0-99); FRAGMENT RBC FLAG 0 (0-99); HEMATOCRIT 39.2 % (38.0-47.0); LEFT SHIFT FLG 0 (0-99); LIPEMIA HEMOLYSIS FLAG 80 (0-99); MEAN CELL HEMOGLOBIN 28.4 pg (27.9-34.1); MEAN CELL HEMOGLOBIN CONCENTR. 33.2 g/dL (32.4-36.7); MEAN CELL VOLUME 85.8 fL (81.5-99.8); MEAN PLATELET VOLUME 8.6 fL (8.7-11.7); PLATELET CLUMPS FLAG 0 (0-99); PLATELET COUNT 310 10^3/uL (150-400); RED BLOOD CELL COUNT 4.57 10^6/uL (4.18-5.33); RED CELL DISTRIBUTION WIDTH 14.6 % (11.5-15.2)
[2017-03-24 01:11] LABS: ALANINE AMINOTRANSFERASE 32 IU/L (9-52); ALKALINE PHOSPHATASE 87 IU/L (38-126); ANION GAP 9 mEq/L (8-16); ASPARTATE AMINOTRANSFERASE 18 IU/L (14-46); BILIRUBIN,TOTAL 0.8 mg/dL (0.1-1.4); BILIRUBIN-CONJUGATED 0.3 mg/dL (0.0-0.5); BILIRUBIN-UNCONJUGATED 0.5 mg/dL (0.0-1.1); CARBON DIOXIDE 28 mEq/l (22-31); CHLORIDE 104 mEq/L (97-110); CREATININE 0.9 mg/dL (0.6-1.0); GLOMERULAR FILTRATION RATE > 60; GLUCOSE 99 mg/dL (70-100); POTASSIUM 3.9 mEq/L (3.5-5.2); SODIUM 141 mEq/L (134-144); TOTAL PROTEIN 7.8 g/dL (6.3-8.2)
[2017-03-24] MEDS ORDERED: IOPAMIDOL (ISOVUE-300) 100 ML BTL IV ONE (01:15)
--- NOTE | 2017-03-24 01:51 | EDPHY ---
H & P Stated Complaint: throbbing pain RUQ abd x2w, increased x2d; hernia rpr 03/06 Aga (Lovely) Time Seen by Provider: 03/23/17 23:45 HPI/ROS: HPI The patient presents with abdominal pain which has been present for the last 1 week and is getting progressively worse. It is a constant, achy and pressure like pain in the right side of her abdomen. On March 06 she had a hernia repair of a ventral hernia by Dr. Murry. She has been using a lidocaine patch was prescribed during her surgical follow-up visit last week with some improvement in her symptoms. She complains of nausea, has not had any vomiting. She denies any diarrhea or constipation. She denies any skin changes over the hernia site. REVIEW OF SYSTEMS Constitutional: No fever, no chills. Eyes: No discharge. ENT: No sore throat. Cardiovascular: No chest pain, no palpitations. Respiratory: No cough, no shortness of breath. Gastrointestinal: No abdominal pain, no vomiting. Genitourinary: No hematuria. Musculoskeletal: No back pain. Skin: No rashes. Neurological: No headache. PMHx: Recent ventral hernia repair, history of cholecystectomy, history of hysterectomy; hypertension, diabetes PHYSICAL General Appearance: Alert, no distress Eyes: Pupils equal and round no pallor or injection ENT, Mouth: Mucous membranes moist Respiratory: There are no retractions, lungs are clear to auscultation Cardiovascular: Regular rate and rhythm Gastrointestinal: Abdomen is soft with tenderness in the right lower and upper quadrants, surgical scars with no surrounding erythema, warmth, edema Neurological: A&O, moves all extremities Skin: Warm and dry, no rashes Musculoskeletal: Neck is supple non tender Extremities: symmetrical, full range of motion Psychiatric: Patient is oriented X 3, there is no agitation Source: Patient Exam Limitations: No limitations - Personal History LMP (Females 10-55): Hysterectomy Current Tetanus/Diphtheria Vaccine: Yes Current Tetanus Diphtheria and Acellular Pertussis (TDAP): Yes Tetanus Vaccine Date: < 10 years - Medical/Surgical History Hx Asthma: No Hx Chronic Respiratory Disease: Yes Hx Diabetes: Yes Hx Cardiac Disease: No Hx Renal Disease: Yes Hx Cirrhosis: No Hx Alcoholism: No Hx HIV/AIDS: No Hx Splenectomy or Spleen Trauma: No Other PMH: HTN, kidney stones, NIDDM, home O2 @ 2L n/c after left fibular surgery, hysterectomy, right breast biopsy, ABD MASS, gallbladder, pulmonary hypertension - Social History Smoking Status: Never smoked Constitutional: Initial Vital Signs Temperature (C) 36.8 C 03/23/17 23:05 Heart Rate 80 03/23/17 23:05 Respiratory Rate 16 03/23/17 23:05 Blood Pressure 156/92 H 03/23/17 23:05 O2 Sat (%) 93 03/23/17 23:05 O2 Delivery Mode Nasal Cannula O2 (L/minute) 2 Allergies/Adverse Reactions: oxycodone Allergy (Severe, Unverified 11/26/16 22:13) Other-Enter Comments iodine Allergy (Unknown, Verified 11/26/16 19:56) aspirin Allergy (Verified 11/26/16 19:56) codeine Allergy (Verified 11/26/16 19:56) grape Allergy (Verified 11/26/16 19:56) Anaphylaxis Penicillins Allergy (Verified 11/26/16 19:56) Rash shellfish derived Allergy (Verified 11/26/16 19:56) Home Medications: Medication Instructions Recorded Albuterol [Ventolin Hfa Inhaler] 1 - 2 puffs IH Q4 PRN 05/07/16 Amitriptyline HCl [Elavil 50 mg 50 mg PO HS 05/07/16 (*)] Gabapentin [Neurontin 300 MG (*)] 300 mg PO DAILY 05/07/16 Linagliptin [Tradjenta] 5 mg PO HS 05/07/16 Omeprazole 40 mg PO BID 05/07/16 Sertraline HCl [Zoloft 50mg (*)] 100 mg PO DAILY 05/07/16 Botox Injection 1 dose SQ Q90D 11/26/16 Gabapentin [Neurontin 300 MG (*)] 600 mg PO HS 11/26/16 Warfarin Sodium [Coumadin 5MG (*)] 5 mg PO MOSA 11/26/16 Warfarin Sodium [Coumadin 7.5MG 7.5 mg PO SUTUWETHFR 11/26/16 (*)] Lidocaine [Lidoderm] 03/23/17 Medical Decision Making - Diagnostics Imaging Results: CT abdomen pelvis demonstrates constipation. Discussed with Dr. Nicole of Radiology. Imaging: Discussed imaging studies w/ hearing consultant Radiologist Differential Diagnosis: This is a 51-year-old female with recent ventral hernia repair who presents with right-sided abdominal pain. On exam, she is tender in her right abdomen lateral to the umbilicus. Differential diagnosis includes recurrent hernia, surgical site infection, postop hematoma, constipation, appendicitis. In the emergency room, the patient had basic laboratory testing that was unremarkable. She declined any pain medication. CT scan was performed and showed usual postoperative changes and constipation. I feel patient's pain could be related to constipation and I have discussed this with her. I will discharge her with instructions for MiraLax to see if this improves her symptoms. If she is not better with this, then I have instructed her to follow up with Dr. Murry. She is in agreement with this plan. - Data Points Laboratory Results: Laboratory Results 03/24/17 00:45 03/24/17 00:45 03/24/17 03/24/17 00:45 00:45 WBC 4.28 10^3/uL 10^3/uL (3.80-9.50) RBC 4.57 10^6/uL 10^6/uL (4.18-5.33) Hgb 13.0 g/dL g/dL (12.6-16.3) Hct 39.2 % % (38.0-47.0) MCV 85.8 fL fL (81.5-99.8) MCH 28.4 pg pg (27.9-34.1) MCHC 33.2 g/dL g/dL (32.4-36.7) RDW 14.6 % % (11.5-15.2) Plt Count 310 10^3/uL 10^3/uL (150-400) MPV 8.6 fL L fL (8.7-11.7) Neut % (Auto) 51.6 % % (39.3-74.2) Lymph % (Auto) 34.6 % % (15.0-45.0) [place] % (Auto) 10.5 % % (4.5-13.0) Eos % (Auto) 2.6 % % (0.6-7.6) Baso % (Auto) 0.5 % % (0.3-1.7) Nucleat RBC Rel Count 0.0 % % (0.0-0.2) Absolute Neuts (auto) 2.21 10^3/uL 10^3/uL (1.70-6.50) Absolute Lymphs (auto) 1.48 10^3/uL 10^3/uL (1.00-3.00) Absolute Monos (auto) 0.45 10^3/uL 10^3/uL (0.30-0.80) Absolute Eos (auto) 0.11 10^3/uL 10^3/uL (0.03-0.40) Absolute Basos (auto) 0.02 10^3/uL 10^3/uL (0.02-0.10) Absolute Nucleated RBC 0.00 10^3/uL 10^3/uL (0-0.01) Immature Gran % 0.2 % % (0.0-1.1) Immature Gran # 0.01 10^3/uL 10^3/uL (0.00-0.10) Sodium 141 mEq/L mEq/L (134-144) Potassium 3.9 mEq/L mEq/L (3.5-5.2) Chloride 104 mEq/L mEq/L (97-110) Carbon Dioxide 28 mEq/l mEq/l (22-31) Anion Gap 9 mEq/L mEq/L (8-16) BUN 9 mg/dL mg/dL (7-23) Creatinine 0.9 mg/dL mg/dL (0.6-1.0) Estimated GFR > 60 Glucose 99 mg/dL mg/dL (70-100) Calcium 9.0 mg/dL mg/dL (8.5-10.4) Total Bilirubin 0.8 mg/dL mg/dL (0.1-1.4) Conjugated Bilirubin 0.3 mg/dL mg/dL (0.0-0.5) Unconjugated Bilirubin 0.5 mg/dL mg/dL (0.0-1.1) AST 18 IU/L IU/L (14-46) ALT 32 IU/L IU/L (9-52) Alkaline Phosphatase 87 IU/L IU/L (38-126) Total Protein 7.8 g/dL g/dL (6.3-8.2) Albumin 4.0 g/dL g/dL (3.5-5.0) Lipase 49.0 IU/L IU/L (23-300) Medications Given: Discontinued Medications Diphenhydramine HCl (Benadryl Injection) 25 mg IVP EDNOW ONE Stop: 03/24/17 01:17 Last Admin: 03/24/17 01:35 Dose: 25 mg Departure - Departure Disposition: Home, Routine, Self-Care Clinical Impression: Constipation Qualifiers: Constipation type: unspecified constipation type Qualified Code(s): K59.00 - Constipation, unspecified Abdominal pain Qualifiers: Abdominal location: right lower quadrant Qualified Code(s): R10.31 - Right lower quadrant pain Condition: Good Instructions: Constipation (ED) Additional Instructions: I recommend you take MiraLax 17 g by mouth once daily for the next 5 days to see if this improves your symptoms. If it does not, I recommend that you follow up with Dr. Murry for further evaluation. Referrals: Marcie Arcos PAC [Primary Care Provider] - As per Instructions Julio C Murry MD [Medical Doctor] - As per Instructions
[2017-03-24 01:54] VITALS: O2SAT 100
[2017-03-24 03:02] VITALS: BP 125/61; PULSE 64; RESP 18; TEMP 97.9
== END 2017-03-24 03:25 | disposition home or self-care (01) ==
DX: K59.00 Constipation, unspecified (principal); I10 Essential (primary) hypertension; E11.9 Type 2 diabetes mellitus without complications; Z79.01 Long term (current) use of anticoagulants; Z79.4 Long term (current) use of insulin
CPT/HCPCS: 96374; J1200; Q9967

== ENCOUNTER 2018-06-11 11:41 | Inpatient (IN) | payer MEDICAID ==
[2018-06-11] MEDS ORDERED: LIDOCAINE 1% 300 MG/30 ML SDV ONE (11:52)
[2018-06-11] MEDS ORDERED: BUPIVACAINE 0.25% 30 ML SDV ONE (11:52)
[2018-06-11] MEDS ORDERED: LR 1,000 ML IV ONE (12:07)
[2018-06-11 12:51] LABS: PLATELET COUNT 223 10^3/uL (150-400)
[2018-06-11] MEDS ORDERED: MIDAZOLAM 2 MG/2 ML VIAL IVP ONE (13:02)
--- NOTE | 2018-06-11 13:02 | PDANEPAE ---
ANE Past Medical History - Cardiovascular History Hx Hypertension: Yes Hx Arrhythmias: Yes Hx Chest Pain: Yes Hx Coronary Artery / Peripheral Vascular Disease: Yes Hx CHF / Valvular Disease: No Hx Palpitations: No Cardiovascular History Comment: HX OF DVT. HX OF CP. CAD. HEART MURMUR. 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 PULM HTN. O2 AT 3L DURING NOC WITH CPAP. SEEN AT [facility] - Neurologic History Hx Cerebrovascular Accident: Yes Hx Seizures: Yes Hx Dementia: No Neurologic History Comment: CVA 2013 AND 2006. SEIZURES CHILD. DIABETIC NEUROPATHY. MIGRAINES - Endocrine History Hx Diabetes: Yes Endocrine History Comment: HX OF BEING PRE-DIABETIC HAS LOST OVER 60 POUNDS OVER THE LAST YEAR - Renal History Hx Renal Disorders: Yes Renal History Comment: HX OF KIDNEY STONES. INCONTINENCE ISSUES- USES PADS - Liver History Hx Hepatic Disorders: No - Neurological & Psychiatric Hx Hx Neurological and Psychiatric Disorders: Yes Neurological / Psychiatric History Comment: ANXIETY. DEPRESSION. BIPOLAR 2 - Cancer History Hx Cancer: No - Congenital Disorder History Hx Congenital Disorders: No - GI History Hx Gastrointestinal Disorders: Yes Gastrointestinal History Comment: CHRONIC DIARRHEA. NAUSEA. REFLUX. HX OF DYSPHAGIA - Other Health History Other Health History: OSTEOARTHRITIS AND RA. IRON DEFICIENCY. BRUISES EASILY D /T BLOOD THINNERS. WEARS GLASSES. NEEDS DENTAL WORK DONE BUT CAN'T ARRANGE D/ T INR'S- MISSING SEVERAL TEETH - Chronic Pain History Chronic Pain: Yes (GENERALIZED ARTHRITIC PAIN) - Surgical History Prior Surgeries: C section 1987 emergent. sphincter plasty 1990. double hernia repair 1998. T&A as child. Hysterectomy 2008. 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 MELODY 2014 WITH SOLO AT [facility] ALSO REMOVED OVARIES. 2016 FX'D LEG REPAIR WITH HARDWARE AND REMOVAL. HERNIA REPAIR 2016 ANE Review of Systems Review of Systems: - Exercise capacity METS (RN): 4 METS ANE Patient History - Allergies Allergies/Adverse Reactions: aspirin Allergy (Verified 06/11/18 12:50) NOSE BLEED codeine Allergy (Verified 06/11/18 12:50) HALLUCINATIONS grape Allergy (Verified 06/11/18 12:50) Anaphylaxis iodine Allergy (Verified 06/11/18 12:50) USUALLY ASSOCIATED WITH SHELLFISH oxycodone Allergy (Verified 06/11/18 12:50) Respiratory Distress Penicillins Allergy (Verified 06/11/18 12:50) Rash shellfish derived Allergy (Verified 06/11/18 12:50) Anaphylaxis soy Allergy (Verified 06/11/18 12:50) INTOLERANCE TOO - Home Medications Home Medications: Albuterol [Ventolin Hfa Inhaler] 1 - 2 puffs IH Q4 PRN 05/07/16 [Last Taken Unknown] Omeprazole 40 mg PO BID PRN 05/07/16 [Last Taken 11/26/16] Warfarin Sodium [Coumadin 5MG (*)] 5 mg PO MWF@11/26/16 [Last Taken 11/25/16] Warfarin Sodium [Coumadin 7.5MG (*)] 7.5 mg PO SUTUTHSA@11/26/16 [Last Taken Unknown] Cyanocobalamin [Vitamin B12 (*)] 1,500 mcg PO DAILY 06/09/18 [Last Taken Unknown ] Enoxaparin [Lovenox 150 MG (*)] 150 mg SC BID 06/09/18 [Last Taken Unknown] Nitroglycerin [Nitrostat 0.4 mg (*)] 0.4 mg SL Q5M PRN 06/09/18 [Last Taken Unknown] Zaleplon [ZALEPLON] 10 mg PO HS PRN 06/09/18 [Last Taken Unknown] lamoTRIgine [LamICTAL 100 MG (*)] 200 mg PO DAILY 06/09/18 [Last Taken Unknown] oxyCODONE IR [Oxycodone Ir (*)] 5 mg PO Q6HRS PRN 06/09/18 [Last Taken 06/11/18 10:45] - NPO status NPO Status: no food or drink >8 hours - Anes Hx Anes Hx: no prior problems - Smoking Hx Smoking Status: Never smoked - Family Anes Hx Family Hx Anesthesia Complications: FAMILY HX OF WAKING UP DURING SURGERY ANE Labs/Vital Signs - Labs Result Diagrams: 06/11/18 12:38 06/11/18 12:38 - Vital Signs Height: 170.18 cm Weight: 126.099 kg ANE Physical Exam - Airway Neck exam: FROM Mallampati Score: Class 2 Mouth exam: poor dentition - Pulmonary Pulmonary: no respiratory distress, no rales or rhonchi, clear to auscultation - Cardiovascular Cardiovascular: regular rate and rhythym, no murmur, rub, or gallop - ASA Status ASA Status: III ANE Anesthesia Plan Anesthesia Plan: general endotracheal anesthesia
[2018-06-11] MEDS ORDERED: HYDROCODONE/APAP 5/325 TAB PO PRN (13:03)
[2018-06-11] MEDS ORDERED: NALOXONE HCL 0.4 MG/ML INJ IVP PRN (13:03)
[2018-06-11] MEDS ORDERED: PROMETHAZINE HCL 25 MG/ML INJ IVP PRN (13:03)
[2018-06-11] MEDS ORDERED: METOCLOPRAMIDE 10 MG/2 ML VIAL IVP PRN (13:03)
[2018-06-11] MEDS ORDERED: ONDANSETRON 4 MG/2 ML VIAL IVP PRN (13:03)
[2018-06-11] MEDS ORDERED: ACETAMINOPHEN 500 MG TAB PO PRN (13:03)
[2018-06-11] MEDS ORDERED: LR 500 ML IV PRN (13:03)
--- NOTE | 2018-06-11 13:03 | PDHPUP ---
History & Physical Update H&P update statement: This history and physical update is based on an assessment of the patient which was completed after admission or registration (within 24 hours), but prior to the surgery/procedure. H&P update: H&P reviewed & patient examined, no change in patient's condition since H&P completed
[2018-06-11] MEDS ORDERED: MIDAZOLAM 2 MG/2 ML VIAL ONE (13:04)
[2018-06-11 13:05] LABS: INR 1.1 (0.83-1.16); PROTIME(PATIENT) 14.4 SEC (12.0-15.0)
[2018-06-11] MEDS ORDERED: fentaNYL 100 MCG/2 ML INJ ONE ×2 (13:11→14:40)
[2018-06-11] MEDS ORDERED: PROPOFOL 200 MG/20 ML VIAL ONE (13:11)
[2018-06-11] MEDS ORDERED: LIDOCAINE 2% 5 ML SDV ONE ×2 (13:13→14:21)
[2018-06-11] MEDS ORDERED: ONDANSETRON 4 MG/2 ML VIAL ONE (13:13)
[2018-06-11] MEDS ORDERED: KETOROLAC 30 MG/1 ML SDV ONE (13:13)
[2018-06-11] MEDS ORDERED: SUCCINYLCHOLINE CHLORIDE 200 MG/10 ML SYR IVP ONE (13:13)
[2018-06-11] MEDS ORDERED: ePHEDrine SULFATE 25 MG/5 ML SYR ONE (13:31)
--- NOTE | 2018-06-11 14:38 | POSTANESTH ---
Post Anesthetic Evaluation Cardiovascular Status: Normal, Stable, Similar to Pre-Op Cond Respiratory Status: Normal, Stable, Similar to Pre-op Cond. Level of Consciousness/Mental Status: Can Participate in Eval, Moderately Sleepy Pain Control: Adequate, Prn Tx Ordered Nausea/Vomiting Control: Adequate, Prn Tx Ordered Complications Possibly Related to Anesthesia: None Noted
[2018-06-11] MEDS: fentaNYL 100 MCG/2 ML INJ IVP PRN ×2 (14:42→15:07)
--- NOTE | 2018-06-11 15:09 | POSTOPPROG ---
Post Op Note Date of Operation: 06/11/18 Surgeon: Julio C Murry Looper Operator: none Anesthesiologist: Dr Alberto Ceballos Anesthesia: GET(General Endotracheal) Pre-op Diagnosis: ventral hernia Post-op Diagnosis: same Indication: incisional hernia Procedure: Lap ventral hernia repair Findings: 2 prior repairs intact Inf/Abcess present in the surg proc area at time of surgery?: No EBL: Minimal
[2018-06-11] MEDS ORDERED: ACETAMINOPHEN 325 MG TAB PO PRN (15:11)
[2018-06-11] MEDS ORDERED: ALBUTEROL IH PRN (15:12)
[2018-06-11] MEDS ORDERED: NITROGLYCERIN 0.4 MG BTL SL PRN (15:12)
--- NOTE | 2018-06-11 15:32 | PDMN ---
Medical Necessity Medical necessity: IP only surgery; cpt 93932; [facility] [place] [id number] Ventral Hernia Repair
[2018-06-11] MEDS: HYDROmorphONE/DILAUDID 1 MG/ML INJ IVP PRN ×2 (16:01→19:53)
[2018-06-11] MEDS: HYDROCODONE/APAP 5/325 TAB PO PRN ×2 (16:33→23:54)
[2018-06-11] MEDS: WARFARIN SODIUM 5 MG TAB PO SCH (20:01)
[2018-06-11] MEDS: ENOXAPARIN 150 MG/ML SYR SC SCH (20:02)
[2018-06-12] MEDS: ZOLPIDEM TARTRATE 5 MG TAB PO PRN ×2 (00:15→20:42)
[2018-06-12] MEDS: HYDROCODONE/APAP 5/325 TAB PO PRN ×4 (04:41→20:43)
[2018-06-12 05:35] LABS: INR 1.1 (0.83-1.16); PROTIME(PATIENT) 14.4 SEC (12.0-15.0)
[2018-06-12] MEDS: HYDROmorphONE/DILAUDID 1 MG/ML INJ IVP PRN ×2 (08:37→12:51)
[2018-06-12] MEDS ORDERED: PANTOPRAZOLE SODIUM 40 MG TAB PO PRN (09:00)
[2018-06-12] MEDS: lamoTRIgine 100 MG TAB PO SCH (09:39)
[2018-06-12] MEDS: CYANO/VITAMIN B12 1000 MCG TAB PO SCH (09:39)
[2018-06-12] MEDS ORDERED: PNEUMOCOCCAL 0.5ML VACCINE VIAL IM ONE (10:13)
--- NOTE | 2018-06-12 10:15 | ASMTCMCOM ---
CM Note CM Note Notes: CM reviewed chart for D/C planning. Pt is a 53 y/o female with a hx of breast cancer and a hernia. Yesterday she had a lap ventrical hernia repair. Pt lives with her 3 daughters. They all work and Pt is concerned as to how she will take care of herself during the day, but has a "large pitbull that I would have to control if someone came over". She does plan to stay on the first floor of the house where there is a bathroom. She was asked to request CM if she wanted to reconsider unskilled care. CM will follow. D/C Plan: Anticipate independent. Date Signed: 06/12/2018 10:14 AM Electronically Signed By:Briseyda Yang
[2018-06-12] MEDS: ENOXAPARIN 150 MG/ML SYR SC SCH ×2 (10:21→20:42)
[2018-06-12] MEDS ORDERED: KETOROLAC 30 MG/1 ML SDV IVP ONE (16:21)
--- NOTE | 2018-06-12 18:05 | SOAPPROG ---
SOAP Progress Note Assessment/Plan: Assessment/Plan: Postop day 1. Status post laparoscopic ventral hernia repair recurrent incisional hernia. The patient has continued pain. It is not quite treated with Dilaudid or [place]. Regular rate and rhythm Clear to auscultation Incisions clean dry intact diffusely tender throughout her entire abdomen No signs of infection No edema 53-year-old woman with morbid obesity, obstructive sleep apnea presented with hernia status post laparoscopic repair appropriate incisional pain. She will remain in the hospital while trying to find out a good regimen for her she is being bridge back up to her current warfarin use with Lovenox for for factor 5 Leiden deficiency all questions were addressed anticipate discharge in 24 hr on oral medications 06/12/18 18:03 Objective: Vital Signs Temp Pulse Resp BP Pulse Ox 36.8 C 55 L 16 110/67 97 06/12/18 15:12 06/12/18 15:12 06/12/18 15:12 06/12/18 15:12 06/12/18 15:12 Laboratory Results 06/11/18 12:38 06/11/18 12:38 06/11/18 06/12/18 06/13/18 05:59 05:59 05:59 Intake Total 1700 Output Total 2620 Balance -920 PT 14.4 SEC (12.0-15.0) 06/12/18 04:30 INR 1.10 (0.83-1.16) 06/12/18 04:30 ICD10 Worksheet Patient Problems: Problems Problem Status Onset Acute chest pain Acute Chest pain Acute Diabetes Acute Pulmonary hypertension Acute
[2018-06-12] MEDS ORDERED: WARFARIN SODIUM 5 MG TAB PO SCH (21:00)
[2018-06-13] MEDS: HYDROmorphONE/DILAUDID 1 MG/ML INJ IVP PRN (02:35)
[2018-06-13] MEDS: HYDROCODONE/APAP 5/325 TAB PO PRN ×2 (03:08→09:04)
--- NOTE | 2018-06-13 08:18 | SOAPPROG ---
SOAP Progress Note Assessment/Plan: Assessment/Plan: Postop day 2. Status post laparoscopic ventral hernia repair recurrent incisional hernia. The patient has continued pain all over including bilateral thighs, chest and abdomen. The pain has not been well treated with Dilaudid or [place]. Trial of Toradol x1 did not decrease her pain Regular rate and rhythm Clear to auscultation Incisions clean dry intact diffusely tender throughout her entire abdomen No signs of infection No edema 53-year-old woman with morbid obesity, obstructive sleep apnea presented with hernia. She is status post laparoscopic repair with more than appropriate incisional pain. She will remain in the hospital while trying to find out a good regimen for her she is being bridge back up to her current warfarin use with Lovenox for for factor 5 Leiden deficiency all questions were addressed anticipate discharge in 24 hr on oral medications Swab for flu will be done. Chest x-ray and labs will be obtained. Medicine consult if no improvement in the next 6-12 hours. 06/12/18 18:03 06/13/18 08:15 Objective: Vital Signs Temp Pulse Resp BP Pulse Ox 36.8 C 53 L 16 106/59 L 92 06/13/18 07:37 06/13/18 07:37 06/13/18 07:37 06/13/18 07:37 06/13/18 07:37 Laboratory Results 06/11/18 12:38 06/11/18 12:38 06/12/18 06/13/18 06/14/18 05:59 05:59 05:59 Intake Total 1700 Output Total 2620 Balance -920 PT 14.4 SEC (12.0-15.0) 06/12/18 04:30 INR 1.10 (0.83-1.16) 06/12/18 04:30 ICD10 Worksheet Patient Problems: Problems Problem Status Onset Acute chest pain Acute Chest pain Acute Diabetes Acute Pulmonary hypertension Acute
[2018-06-13] MEDS: CYANO/VITAMIN B12 1000 MCG TAB PO SCH (09:03)
[2018-06-13] MEDS: ENOXAPARIN 150 MG/ML SYR SC SCH ×2 (09:04→21:39)
[2018-06-13] MEDS: lamoTRIgine 100 MG TAB PO SCH (09:04)
[2018-06-13 10:43] LABS: CREATINE KINASE 320 IU/L (0-156)
--- NOTE | 2018-06-13 10:52 | GCON ---
[f rep st] CONSULTATION DATE OF CONSULTATION: 06/13/2018 REFERRING PHYSICIAN: Julio C Murry MD REASON FOR CONSULTATION: I was asked by Dr. Murry to see the patient in regard to her somewhat wid espread pain, including pleuritic chest pain. HISTORY OF PRESENT ILLNESS: This is a 53-year-old female with a history notable for antiphospholipid antibody syndrome, as well as pulmonary hypertension, who is now postoperative day 2, status post ve ntral hernia repair. She describes pain that started over the night last night. She has a burning p leuritic chest pain. She has pain in her arms, as well as her legs, described as mostly proximal, th ough now somewhat distal. Moving her extremities makes this pain worse. She has had pain like this before. This has kept her from going to work in the past. She has a clotting disorder, as above, lerma d been bridged off Coumadin with Lovenox prior to surgery. She has been restarted on Lovenox postope ratively, has received 4 doses of Lovenox at this point. She presented here with chest pain in November of 2016. She had a nuclear stress test at that time, w hich showed possible small area of ischemia. She had a catheterization in 2016, which showed normal coronaries. After her stress test, she followed up with Cardiology, who did not feel that additional testing was necessary. She reports having had an echocardiogram done at [facility] in January of 2018, which showed a dilated RV. PAST MEDICAL/SURGICAL HISTORY: 1. Diabetes mellitus type 2, currently off medications with a well-controlled A1c, per her report. 2. History of fibromyalgia. 3. History of antiphospholipid antibody syndrome, on lifelong anticoagulation. 4. Possible history of lupus diagnosed in [place], [place]. 5. History of DVT in her left lower extremity, currently on lifelong anticoagulation. 6. Bipolar 2 disorder on Lamictal. 7. Depression and anxiety. 8. History of small bowel bacterial overgrowth. MEDICATIONS: Please see medication reconciliation. ALLERGIES: Aspirin, codeine, grape, iodine, oxycodone, penicillin, shellfish, and soy. FAMILY HISTORY: She has had siblings who have had antiphospholipid antibody syndrome. SOCIAL HISTORY: She has never smoked. She drinks alcohol about once a year. REVIEW OF SYSTEMS: A 10-point review of systems is conducted and is negative, except per HPI. PHYSICAL EXAM: VITAL SIGNS: Blood pressure 106/59, heart rate 53, respiration rate 16, saturating 9 2% on room air. Temperature is 36.8. GENERAL: The patient is a pleasant female who looks somewhat u ncomfortable, resting in bed. HEENT: Normocephalic, atraumatic. CARDIOVASCULAR: Regular rate and rhythm. No murmurs, rubs, or gallops. CHEST: Exam shows no tenderness to palpation over her anteri or chest. PULMONARY: Lungs clear to auscultation bilaterally. ABDOMEN: Soft. She is diffusely te nder to palpation. EXTREMITIES: Exam shows all of her extremities to be quite tender to light palpa tion, mostly in the proximal areas. SKIN: Exam shows no rash. : Exam shows no [place]. NEUROLOGIC : Exam shows her to be alert and oriented x3. She is moving all extremities. PSYCHIATRIC: Normal mood and affect. LABS: White count is 3.07. Hemoglobin is 12. INR was 1.1. Basic metabolic from the is unrema rkable. LFTs are normal. Influenza has been negative. DATA: I reviewed her chart, including her last admission, as well as stress test. IMPRESSION/PLAN: 1. Chest pain and diffuse body aches: Differential includes pain disorder like fibromyalgia, cardia c versus pulmonary causes of chest pain. I think that this is more likely due to an underlying pain disorder, and given her recent cardiac evaluation, I am less suspicious. I will, however, obtain an EKG and trend her troponins. If these are abnormal or concerning, we will consult Cardiology. We wi ll check a CK given her diffuse myalgias. Chest x-ray has been ordered and is pending. We discussed the utility of a CT angiogram. This would not change her management as she is already on anticoagul ation. She is comfortable with this. Further treatment will depend on the above workup. 2. Bipolar 2, depression, anxiety: Will continue her Lamictal. It seems to be well controlled now. 3. History of deep vein thrombosis: She is being bridged with high-dose Lovenox. This is appropria te. She is also on warfarin. Thank you for involving Hospital Medicine in the care of the patient. We will continue to follow chavo saldivar with you. /[id number]/MODL
[2018-06-13 11:45] LABS: INR 1.22 (0.83-1.16); PROTIME(PATIENT) 15.6 SEC (12.0-15.0)
[2018-06-13] MEDS: METHOCARBAMOL 750 MG TAB PO PRN ×2 (13:04→21:37)
[2018-06-13] MEDS ORDERED: POTASSIUM CL 20 MEQ TAB PO ONE (13:32)
--- NOTE | 2018-06-13 16:43 | CPEKG ---
Heart Rate: 58 RR Interval: 1034 P-R Interval: 156 QRSD Interval: 142 QT Interval: 448 QTC Interval: 441 P [place]: 13 QRS [place]: 35 T Wave [place]: 7 EKG Severity - ABNORMAL ECG - EKG Impression: SINUS RHYTHM EKG Impression: RIGHT BUNDLE BRANCH BLOCK Electronically Signed By: John Owens 14-Jun-2018 22:44:15
[2018-06-13] MEDS: WARFARIN SODIUM 5 MG TAB PO SCH (21:37)
[2018-06-13] MEDS: ZOLPIDEM TARTRATE 5 MG TAB PO PRN (21:37)
[2018-06-14] MEDS: lamoTRIgine 100 MG TAB PO SCH (09:34)
[2018-06-14] MEDS: ENOXAPARIN 150 MG/ML SYR SC SCH ×2 (09:34→21:23)
[2018-06-14] MEDS: CYANO/VITAMIN B12 1000 MCG TAB PO SCH (09:34)
--- NOTE | 2018-06-14 11:53 | HOSPPROG ---
Hospitalist Progress Note Assessment/Plan: 53F s/p ventral hernia repair, seen for diffuse myalgias and pleuritic CP. # diffuse myalgias associated with pleuritic CP; may have been related to fibromyalgia - improved today; w/u negative - cardiology had recently deferred further ischemic evaluation - will not pursue at this point - cont robaxin prn; she has a referral to rheum - could consider lyrica # APLA syndrome, hx DVT - cont lovenox bridge to warfarin - recheck INR tomorrow # bipolar 2, anxiety - cont lamictal Subjective: doing much better today; myalgias improved Objective: Vital Signs Temp Pulse Resp BP Pulse Ox 36.8 C 66 12 139/75 H 96 06/14/18 08:00 06/14/18 08:54 06/14/18 08:54 06/14/18 08:00 06/14/18 08:54 Laboratory Results 06/13/18 10:00 06/14/18 07:23 06/13/18 06/14/18 06/15/18 05:59 05:59 05:59 Intake Total 1765 Balance 1765 PT 15.6 SEC (12.0-15.0) H 06/13/18 10:00 INR 1.22 (0.83-1.16) H 06/13/18 10:00 chart reviewed ECG reviewed CXR reviewed - Physical Exam Constitutional: no apparent distress, appears nourished Cardiovascular: regular rate and rhythym, no murmur, rub, or gallop Respiratory: no respiratory distress, no rales or rhonchi, clear to auscultation Gastrointestinal: soft, non-tender abdomen (mild ttp, no guarding), No distension ICD10 Worksheet Patient Problems: Problems Problem Status Onset Diabetes Acute Chest pain Acute Pulmonary hypertension Acute Acute chest pain Acute
--- NOTE | 2018-06-14 12:04 | SOAPPROG ---
SOAP Progress Note Assessment/Plan: Assessment/Plan: Postop day 3. Appreciate medicine input. W/U otherwise negative. Pt feels much better today. Constipated no BM yet Status post laparoscopic ventral hernia repair recurrent incisional hernia. The patient has continued pain all over including bilateral thighs, chest and abdomen. The pain has not been well treated with Dilaudid or [place]. Trial of Toradol x1 did not decrease her pain Regular rate and rhythm Clear to auscultation Incisions clean dry intact diffusely tender throughout her entire abdomen No signs of infection No edema 53-year-old woman with morbid obesity, obstructive sleep apnea presented with hernia. She is status post laparoscopic repair with more than appropriate incisional pain. She will remain in the hospital while trying to find out a good regimen Constipation MOM now bowel protocol started Bridge back up to her current warfarin use with Lovenox for for factor 5 Leiden deficiency all questions were addressed anticipate discharge in 24 hr on oral medications 06/12/18 18:03 06/13/18 08:15 06/14/18 12:02 Objective: Vital Signs Temp Pulse Resp BP Pulse Ox 36.8 C 66 12 139/75 H 96 06/14/18 08:00 06/14/18 08:54 06/14/18 08:54 06/14/18 08:00 06/14/18 08:54 Laboratory Results 06/13/18 10:00 06/14/18 07:23 06/13/18 06/14/18 06/15/18 05:59 05:59 05:59 Intake Total 1765 Balance 1765 PT 15.6 SEC (12.0-15.0) H 06/13/18 10:00 INR 1.22 (0.83-1.16) H 06/13/18 10:00 ICD10 Worksheet Patient Problems: Problems Problem Status Onset Acute chest pain Acute Chest pain Acute Diabetes Acute Pulmonary hypertension Acute
[2018-06-14] MEDS ORDERED: MAGNESIUM HYDROXIDE 30 ML UDCUP PO PRN (12:05)
[2018-06-14] MEDS ORDERED: BISACODYL 10 MG SUPP PR PRN (12:05)
[2018-06-14] MEDS ORDERED: LACTULOSE 20 GM/30 ML UDCUP PO PRN (12:05)
[2018-06-14] MEDS: POLYETHYLENE GLYCOL 3350 17 GM PKT PO PRN (15:20)
[2018-06-14] MEDS: SENNOSIDES/DOCUSATE SODIUM TAB PO SCH (21:23)
[2018-06-14] MEDS: WARFARIN SODIUM 5 MG TAB PO SCH (21:24)
[2018-06-14] MEDS: ZOLPIDEM TARTRATE 5 MG TAB PO PRN (23:33)
[2018-06-15 05:38] LABS: INR 1.32 (0.83-1.16); PROTIME(PATIENT) 16.6 SEC (12.0-15.0)
[2018-06-15 08:03] VITALS: BP 132/80
--- NOTE | 2018-06-15 09:10 | HOSPPROG ---
Hospitalist Progress Note Assessment/Plan: 53F s/p ventral hernia repair, seen for diffuse myalgias and pleuritic CP. # diffuse myalgias associated with pleuritic CP; may have been related to fibromyalgia - improved today; w/u negative - cardiology had recently deferred further ischemic evaluation - will not pursue at this point - cont robaxin prn; she has a referral to rheum - could consider lyrica # APLA syndrome, hx DVT - cont lovenox bridge to warfarin - recheck INR tomorrow # bipolar 2, anxiety - cont lamictal # dispo - ok for dc from IM perspective when cleared by Dr Murry Subjective: having pain at incision sites; not diffuse myalgias Objective: Vital Signs Temp Pulse Resp BP Pulse Ox 36.8 C 60 16 132/80 H 91 L 06/15/18 07:59 06/15/18 07:59 06/15/18 07:59 06/15/18 07:59 06/15/18 07:59 Laboratory Results 06/13/18 10:00 06/14/18 07:23 06/14/18 06/15/18 06/16/18 05:59 05:59 05:59 Intake Total 1765 Balance 1765 PT 16.6 SEC (12.0-15.0) H 06/15/18 04:27 INR 1.32 (0.83-1.16) H 06/15/18 04:27 - Physical Exam Constitutional: no apparent distress, appears nourished Eyes: anicteric sclera Ears, Nose, Mouth, Throat: hearing normal Cardiovascular: regular rate and rhythym, no murmur, rub, or gallop Respiratory: no respiratory distress, no rales or rhonchi, clear to auscultation Gastrointestinal: No distension Musculoskeletal: full muscle strength Neurologic: AAOx3 Psychiatric: not anxious ICD10 Worksheet Patient Problems: Problems Problem Status Onset Diabetes Acute Chest pain Acute Pulmonary hypertension Acute Acute chest pain Acute
[2018-06-15] MEDS: SENNOSIDES/DOCUSATE SODIUM TAB PO SCH (09:13)
[2018-06-15] MEDS: ENOXAPARIN 150 MG/ML SYR SC SCH (09:34)
[2018-06-15] MEDS: lamoTRIgine 100 MG TAB PO SCH (09:34)
[2018-06-15] MEDS: CYANO/VITAMIN B12 1000 MCG TAB PO SCH (09:34)
[2018-06-15] MEDS: POLYETHYLENE GLYCOL 3350 17 GM PKT PO PRN (09:34)
--- NOTE | 2018-06-15 11:07 | ASMTCMCOM ---
CM Note CM Note Notes: PRICILA spoke to BRAYAN Archibald regarding d/c POC. The plan remains the same. Pt will d/c home independent w/ supportive daughters. CM available for changes. Plan: Independent Date Signed: 06/15/2018 11:06 AM Electronically Signed By:ROJAS Villatoro
--- NOTE | 2018-06-15 12:23 | ASMTLACE ---
LACE Length of stay for Answers: 4-6 days current admission Acuity / Level of Answers: Yes Care: Did the patient have an inpatient admission? Comorbidities - select Answers: Cerebrovascular disease all that apply (CVA, TIA, aneurysms, vasc ular dementia) Coronary Artery Disease Diabetes (uncontrolled or controlled) Opioid dependence / Chronic pain Other Notes: HTN; Hx of PE # of Emergency department Answers: 0 visits in the last 6 months Social determinants Answers: Mental health diagnosis (anxiety, depression, pers onality disorders, etc.) Score: 19 Date Signed: 06/15/2018 12:22 PM Electronically Signed By:Alondra Ferrara
[2018-06-15] MEDS ORDERED: WARFARIN SODIUM 7.5 MG TAB PO ONE (21:00)
--- NOTE | 2018-06-16 10:53 | GDS ---
[f rep st] DISCHARGE SUMMARY This is a 53-year-old patient well known to me for previous breast and abdominal issues. The patient has a new onset of a hernia noted over the last several months after she had a 60 pound weight loss. PAST MEDICAL HISTORY: Significant for Factor 5 Leiden, history of PE, diabetes, hypertension, gastro esophageal reflux, kidney stones and colitis. MEDICATIONS: The patient is currently taking Coumadin, omeprazole, albuterol with p.r.n. nitroglycer in. ALLERGIES: She has allergies to soy and codeine. SOCIAL HISTORY: The patient is currently a student. She is . She is a nonsmoker. Occasion al alcohol use. Denies any drug use. HOSPITAL COURSE: The patient was brought to the hospital for elective surgery. She undergoes uncomp licated hernia repair, but has severe abdominal, chest, and leg pain postoperatively. She had laisha p performed including EKG, chest x-ray, laboratory studies. Hospital Medicine was consulted, Dr. Asael hagen, who helped with assessment and workup. The patient was then found to have resolution of her p roblem, likely secondary to either fibromyalgia or other concerns that were nonsurgical. The patient was able to tolerate a diet. She was able to be increasing her Coumadin while in the hospital. She will follow up as an outpatient for her INR, and she is back to her baseline cardiopulmonary status prior to discharge. The patient was discharged with oral medications. She has no current complaints . Will follow up in the office accordingly. She knows to call with any concerns regarding her hospi talization or surgery. /[id number]/MODL
--- NOTE | 2018-06-16 10:53 | GOP ---
[f rep st] OPERATIVE REPORT DATE OF OPERATION: 06/11/2018 SURGEON: Julio C Murry MD ANESTHESIA: General endotracheal anesthesia was used. ANESTHESIOLOGIST: Dr. Ceballos. PREOPERATIVE DIAGNOSIS: Ventral incisional hernia. POSTOPERATIVE DIAGNOSIS: Ventral incisional hernia. PROCEDURE PERFORMED: Laparoscopic ventral incisional hernia repair with 10 cm Symbotex mesh. FINDINGS: A 3 cm hernia with incarcerated omentum. Previous hernia repair is intact. SPECIMENS: None. DESCRIPTION OF PROCEDURE: Patient brought to the operating room. After induction of endotracheal an esthesia in a supine position, her abdomen was prepped with chlorhexidine and draped sterilely. A ti me-out procedure was performed according to institutional standards. Local anesthetic infused in ski n and subcutaneous tissues, trocar sites, as well as around the hernia. Optical trocar placement was done in the left upper quadrant. The abdomen was insufflated to 15 TOR with carbon dioxide. Workin g trocars were placed in left flank, left lower quadrant under direct visualization. The hernia was identified and brought down into the field of dissection, and dissection of adhesions of the omentum to the anterior abdominal wall were taken down with blunt and bipolar energy dissection. The hernia is completely reduced. The attachments to the hernia sac are taken down using bipolar energy. A sma ll incision was made above the hernia sac. This was used to introduce a 10 cm mesh which is fashione d to the abdominal wall using a suture passer through the abdominal wall to previously-placed suture. The hernia sac was debrided, closed using 0 Vicryl suture and [id number] sutures, and then the mesh was affixed to the abdominal wall and then secured in place using tacks. Hemostasis was assure d. The abdomen was exited and deflated. The skin was reapproximated in the incisions using 4-0 Davis cryl. Dermabond was applied. The patient was awakened, extubated, taken to recovery room in stable condition. Needle, instrument, and sponge counts verified to be correct. No immediate complications . COMPLICATIONS: There were no complications. /[id number]/MODL
== END 2018-06-15 15:07 | disposition home or self-care (01) | DRG 952 ==
LOC: F3E 11:41
PROVIDERS: ADMIT Surgery; ATTEND Surgery
PROC: 0WUF4JZ Supplement Abdominal Wall with Synthetic Substitute, Percutaneous Endoscopic Approach (ICD-10-PCS; principal; 2018-06-11 13:00)
DX: R07.9 Chest pain, unspecified (principal); M79.1 Myalgia; K43.2 Incisional hernia without obstruction or gangrene; D68.61 Antiphospholipid syndrome; I27.20 Pulmonary hypertension, unspecified; E66.01 Morbid (severe) obesity due to excess calories; Z68.41 Body mass index [BMI] 40.0-44.9, adult; R10.9 Unspecified abdominal pain; E11.9 Type 2 diabetes mellitus without complications; I10 Essential (primary) hypertension; K21.9 Gastro-esophageal reflux disease without esophagitis; F31.9 Bipolar disorder, unspecified; M79.7 Fibromyalgia; F41.9 Anxiety disorder, unspecified; G47.33 Obstructive sleep apnea (adult) (pediatric); K59.00 Constipation, unspecified; K44.9 Diaphragmatic hernia without obstruction or gangrene; Z79.01 Long term (current) use of anticoagulants; Z86.711 Personal history of pulmonary embolism; Z87.442 Personal history of urinary calculi; Z83.2 Family history of diseases of the blood and blood-forming organs and certain disorders involving the immune mechanism; Z88.0 Allergy status to penicillin; Z23 Encounter for immunization
CPT/HCPCS: C1781; G0009; J0330; J1170; J1650; J1885; J2250; J2405; J2704; J3010

== ENCOUNTER 2018-11-30 15:49 | Emergency (ER) | payer MEDICAID ==
--- NOTE | 2018-11-30 16:06 | EDPHY ---
H & P Stated Complaint: R mid finger swelling, Hx DVT, CP today midsternum s accomp s/ s Time Seen by Provider: 11/30/18 16:06 HPI/ROS: CHIEF COMPLAINT: Bump on finger, chest pain HISTORY OF PRESENT ILLNESS: The patient presents to the ED after she noticed a bump on the palmar aspect of her right middle finger. The patient contacted her primary care provider who advised her to come to the emergency department if she was having any chest pain. The patient did began to experience chest pain which prompted her presentation today. The patient does have a history of thromboembolic disease she is currently anticoagulated with Coumadin. She has pulmonary hypertension. She has no known history of coronary artery disease. She has had a negative coronary angiogram recently by her report. The patient denies any additional complaints of acute numbness or weakness. She denies any history of recent exertional chest pain or shortness of breath. She does feel that she was somewhat worried by the lump she palpated in her finger. REVIEW OF SYSTEMS: A comprehensive 10 point review of systems is otherwise negative aside from elements mentioned in the history of present illness. Source: Patient Exam Limitations: No limitations - Personal History Current Tetanus/Diphtheria Vaccine: Yes Tetanus Vaccine Date: < 10 years - Medical/Surgical History Hx Asthma: No Hx Chronic Respiratory Disease: Yes Hx Diabetes: Yes Hx Cardiac Disease: No Hx Renal Disease: Yes Hx Cirrhosis: No Hx Alcoholism: No Hx HIV/AIDS: No Hx Splenectomy or Spleen Trauma: No Other PMH: HTN, kidney stones, NIDDM, home O2 @ 2L n/c after left fibular surgery, hysterectomy/oeferectomy, right breast biopsy, ABD MASS, gallbladder removal, pulmonary hypertension, obesity, PR, concussion - Social History Smoking Status: Never smoked - Physical Exam Exam: General Appearance: Alert, no distress Eyes: Pupils equal and round no pallor or injection ENT, Mouth: Mucous membranes moist Respiratory: There are no retractions, lungs are clear to auscultation Cardiovascular: Regular rate and rhythm Gastrointestinal: Abdomen is soft and nontender, no masses, bowel sounds normal Neurological: A&O, normal motor function, normal sensory exam, normal cranial nerves Skin: Warm and dry, no rashes Musculoskeletal: Neck is supple nontender Extremities: Small palpable mass noted on the flexor surface of the right middle finger which appears to be consistent with a ganglion cyst Psychiatric: Patient is oriented X 3, there is no agitation Constitutional: Initial Vital Signs Temperature (C) 36.6 C 11/30/18 16:00 Heart Rate 63 11/30/18 16:00 Respiratory Rate 18 11/30/18 16:00 Blood Pressure 147/85 H 11/30/18 16:00 O2 Sat (%) 97 11/30/18 16:00 O2 Delivery Mode Room Air Allergies/Adverse Reactions: aspirin Allergy (Verified 11/30/18 15:59) NOSE BLEED codeine Allergy (Verified 11/30/18 15:59) HALLUCINATIONS grape Allergy (Verified 11/30/18 15:59) Anaphylaxis iodine Allergy (Verified 11/30/18 15:59) USUALLY ASSOCIATED WITH SHELLFISH oxycodone Allergy (Verified 11/30/18 15:59) Respiratory Distress Penicillins Allergy (Verified 11/30/18 15:59) Rash shellfish derived Allergy (Verified 11/30/18 15:59) Anaphylaxis soy Allergy (Verified 11/30/18 15:59) INTOLERANCE TOO Home Medications: Medication Instructions Recorded Albuterol [Ventolin Hfa Inhaler] 1 - 2 puffs IH Q4 PRN 05/07/16 Omeprazole 40 mg PO BID PRN 05/07/16 Warfarin Sodium [Coumadin 5MG (*)] 5 mg PO MWF@11/26/16 Warfarin Sodium [Coumadin 7.5MG 7.5 mg PO SUTUTHSA@11/26/16 (*)] Cyanocobalamin [Vitamin B12 (*)] 1,500 mcg PO DAILY 06/09/18 Enoxaparin [Lovenox 150 MG (*)] 150 mg SC BID 06/09/18 Nitroglycerin [Nitrostat 0.4 mg 0.4 mg SL Q5M PRN 06/09/18 (*)] Zaleplon [ZALEPLON] 10 mg PO HS PRN 06/09/18 lamoTRIgine [LamICTAL 100 MG (*)] 200 mg PO DAILY 06/09/18 oxyCODONE IR [Oxycodone Ir (*)] 5 mg PO Q6HRS PRN 06/09/18 Medical Decision Making - Diagnostics EKG Interpretation: EKG: Complete interpretation has been separately recorded in the [employer] archive. Summary impression: Atrial fibrillation, rate 58 ED Course/Re-evaluation: The patient presents to the ED over concerns about a mass she noted in her right middle finger which is consistent with a small ganglion cyst. The patient has been advised that she can follow up with Hand surgery regarding this finding. She is referred to our on-call hand surgeon. Patient did have an episode of chest pain earlier today. She has no known history of coronary artery disease. Her EKG demonstrates no evidence of ischemia. The patient is currently anticoagulated and I doubt pulmonary embolism is a presentation of her symptoms today. Patient's i-STAT troponin is also normal. At this point time I do feel the patient can be discharged home and follow up with Hand surgery. She did have an episode of atypical chest pain which I do not feel requires further evaluation at this point time. The patient has been advised to follow up with her regular physicians as scheduled. She is given customary aftercare instructions and return precautions. Differential Diagnosis: Differential diagnosis considered includes thrombosis, cellulitis, cyst, acute coronary syndrome, esophageal spasm - Data Points Laboratory Results: 11/30/18 16:39 POC Troponin I 0.00 ng/mL ng/mL (0.00-0.08) Point of Care Test Results: Chemistry 11/30/18 16:39 POC Troponin I 0.00 ng/mL ng/mL (0.00-0.08) Departure - Departure Disposition: Home, Routine, Self-Care Clinical Impression: Ganglion cyst of finger of right hand Condition: Good Instructions: Ganglion Cysts (ED) Additional Instructions: 1. Please follow-up with a hand surgeon, Dr. Rupesh Cooper, you have been referred to for further evaluation of the mass your feeling in your finger. I believe it is likely a ganglion cyst. 2. Please return to the ED for markedly worsening chest pain, shortness of breath, difficulty breathing or other concerns. Referrals: Marcie Arcos PAC [Primary Care Provider] - As per Instructions Rupesh Cooper MD [Medical Doctor] - As per Instructions
--- NOTE | 2018-11-30 16:39 | CPEKG ---
Test Reason : OPEN Blood Pressure : / mmHG Vent. Rate : 058 BPM Atrial Rate : 058 BPM P-R Int : 143 ms QRS Dur : 159 ms QT Int : 451 ms P-R-T Axes : -03 045 029 degrees QTc Int : 444 ms Atrial fibrillation Right bundle branch block Confirmed by Chele Amaya ([id number]) on 11/30/2018 4:38:40 PM Referred By: Confirmed By:Chele Amaya
[2018-11-30 17:20] VITALS: BP 153/89
== END 2018-11-30 17:20 | disposition home or self-care (01) ==
DX: M67.441 Ganglion, right hand (principal); I27.20 Pulmonary hypertension, unspecified; I74.9 Embolism and thrombosis of unspecified artery; I10 Essential (primary) hypertension; Z79.01 Long term (current) use of anticoagulants
CPT/HCPCS: 84484-ER